=== PATIENT | female | born 1995 | race Two or more races ===

== ENCOUNTER 2023-04-02 15:04 | Emergency (ER) | payer OTHER ==
[~2023-04-02] VITALS: Ht 165.1 cm; Wt 60.3 kg
[2023-04-02 17:20] LABS: HEMATOCRIT 32.8 % (36.0-45.00); HEMOGLOBIN 11.3 g/dL (12.0-15.00); MEAN CELL VOLUME 88.3 fL (80.00-100.00); MEAN CORPUSCULAR HEMOGLOBIN 30.4 pg (27.00-32.0); MEAN CORPUSCULAR HGB CONC 34.5 g/dl (32.0-36.0); PLATELET COUNT 370 K/uL (150-450); RED BLOOD COUNT 3.71 M/uL (4.00-6.00); RED CELL DISTRIBUTION WIDTH 13.4 % (11.5-14.5)
== END 2023-04-02 18:18 | disposition home or self-care (01) ==
LOC: ER 15:05
PROVIDERS: General Practice
DX: R51.9 Headache, unspecified (principal); R53.81 Other malaise; Z20.822 Contact with and (suspected) exposure to COVID-19

== ENCOUNTER 2024-03-11 10:54 | Outpatient (CLI) | payer OTHER | END 2024-03-11 10:55 | disposition home or self-care (01) | LOC: PRENATAL 10:54 | PROVIDERS: ATTEND Obstetrics & Gynecology Maternal & Fetal Medicine | DX: O36.80X0 Pregnancy with inconclusive fetal viability, not applicable or unspecified (principal); Z36.82 Encounter for antenatal screening for nuchal translucency; Z14.8 Genetic carrier of other disease; Z3A.12 12 weeks gestation of pregnancy ==

== ENCOUNTER 2024-05-02 11:03 | Outpatient (CLI) | payer OTHER | END 2024-05-02 11:05 | disposition home or self-care (01) | LOC: PRENATAL 11:03 | PROVIDERS: ATTEND Obstetrics & Gynecology Maternal & Fetal Medicine | DX: O35.3XX0 Maternal care for (suspected) damage to fetus from viral disease in mother, not applicable or unspecified (principal); O44.00 Complete placenta previa NOS or without hemorrhage, unspecified trimester; Z3A.20 20 weeks gestation of pregnancy ==

== ENCOUNTER 2024-05-10 09:17 | Emergency (ER) | payer OTHER ==
[~2024-05-10] VITALS: Ht 165.1 cm; Wt 73.9 kg
[2024-05-10] MEDS ORDERED: PRENATAL + DHA1 EAC1 (09:52)
[2024-05-10] MEDS ORDERED: HYOSCYAMINE SULFATE 0.125 MG TAB.SUBL SL ONE (10:45)
[2024-05-10] MEDS ORDERED: FAMOTIDINE/PF 20 MG/2 ML VIAL IV PUSH ONE (10:45)
[2024-05-10] MEDS ORDERED: ONDANSETRON HCL 2 MG/ML VIAL IV ONE (10:45)
[2024-05-10] MEDS ORDERED: ONDANSETRON HCL 2 MG/ML VIAL ONE (10:49)
[2024-05-10] MEDS ORDERED: FAMOTIDINE/PF 20 MG/2 ML VIAL ONE (10:50)
[2024-05-10] MEDS ORDERED: HYOSCYAMINE SULFATE 0.125 MG TAB.SUBL ONE (10:50)
[2024-05-10 11:24] LABS: HEMATOCRIT 37.6 % (36.0-45.00); HEMOGLOBIN 13.1 g/dL (12.0-15.00); MEAN CORPUSCULAR HEMOGLOBIN 31.5 pg (27.00-32.0); PLATELET COUNT 337 K/uL (150-450); RED BLOOD COUNT 4.18 M/uL (4.00-6.00); RED CELL DISTRIBUTION WIDTH 13.3 % (11.5-14.5)
[2024-05-10 11:55] LABS: PH,URINE 5.5 (5.0-8.0); URINE APPEARANCE Turbid; URINE BILIRRUBIN Negative (NEGATIVE); URINE BLOOD Negative; URINE COLOR Dark Yellow; URINE GLUCOSE Negative (NEGATIVE); URINE KETONE 15 (NEGATIVE); URINE LEUKOCYTE Trace; URINE NITRATE Negative; URINE PROTEIN 30 (NEGATIVE)
[2024-05-10 11:59] LABS: URINE BACTERIA 7831.1 uL (0.0-1933); URINE CAST 4.41 uL (0.0-1.40); URINE RBC 23.7 uL (0.0-20.8); URINE WBC 160.6 uL (0.0-23.2)
[2024-05-10 12:05] LABS: URINE EPITHELIAL CELLS > 201.7 uL (0.0-38.8)
[2024-05-10 12:12] LABS: URINE CRYSTALS FEW /HPF; URINE MUCUS HEAVY
[2024-05-10 12:24] LABS: ALBUMIN 3.1 gm/dL (3.4-5.0); BILIRUBIN TOTAL 0.56 mg/dL (0.3-1.2); CALCIUM 9.7 mg/dL (8.5-10.1); CREATININE SERUM 0.58 mg/dL (0.55-1.02); GFR 122.91; GLOBULINA 3.9 G/DL (2.4-3.5); POTASSIUM 3.94 mEq/L (3.5-5.1)
== END 2024-05-10 15:40 | disposition home or self-care (01) ==
LOC: ER 09:19
PROVIDERS: Emergency Medicine
DX: O99.612 Diseases of the digestive system complicating pregnancy, second trimester (principal); K92.89 Other specified diseases of the digestive system; Z3A.21 21 weeks gestation of pregnancy; R19.7 Diarrhea, unspecified; Z20.822 Contact with and (suspected) exposure to COVID-19

== ENCOUNTER 2024-07-25 10:18 | Outpatient (CLI) | payer OTHER ==
[~2024-07-25 10:18] MED LIST: PRENATAL + DHA1 EAC1
== END 2024-07-25 10:19 | disposition home or self-care (01) ==
LOC: PRENATAL 10:18
PROVIDERS: ATTEND Obstetrics & Gynecology Maternal & Fetal Medicine
DX: O26.849 Uterine size-date discrepancy, unspecified trimester (principal); O36.8199 Decreased fetal movements, unspecified trimester, other fetus; Z3A.33 33 weeks gestation of pregnancy

== ENCOUNTER 2024-09-13 05:30 | Inpatient (IN) | payer OTHER ==
[2024-09-13] VITALS (11 sets, daily range): BP systolic 104–132; BP diastolic 57–79
[~2024-09-13] VITALS: Ht 167.6 cm; Wt 85.7 kg
[2024-09-13] MEDS ORDERED: VALTREX1000 MG PO (05:51)
[2024-09-13] MEDS ORDERED: RINGERS SOLUTION,LACTATED 1,000 ML IV SCH (06:00)
[2024-09-13 06:52] LABS: BASO % 0.4 % (0.1-1.2); EOS # 0.12 (0.04-0.54); EOS % 0.8 % (0.7-7.0); HEMATOCRIT 32.7 % (34.1-44.9); LYMPH # 2.24 (1.18-3.74); LYMPH % 14.4 % (19.3-53.1); MEAN CORPUSCULAR HEMOGLOBIN 28.7 pg (25.6-32.2); MONO # 0.91 (0.24-0.82); MONO % 5.8 % (4.7-12.5); NEUT % 77.5 % (34.0-71.1); PLATELET COUNT 342 K/uL (163-369); RED BLOOD COUNT 3.83 M/uL (3.93-5.22); RED CELL DISTRIBUTION WIDTH 13.7 % (11.6-14.4)
[2024-09-13 07:08] LABS: INR 0.94; PROTHROMBIN TIME 10.3 SECONDS (9.0-11.5)
[2024-09-13 07:39] LABS: ALBUMIN 2.7 gm/dL (3.4-5.0); BILIRUBIN TOTAL 0.3 mg/dL (0.3-1.2); CALCIUM 8.9 mg/dL (8.5-10.1); CREATININE SERUM 0.49 mg/dL (0.55-1.02); GFR 149.31; GLOBULINA 3.8 G/DL (2.4-3.5); POTASSIUM 3.98 mEq/L (3.5-5.1); TOTAL PROTEIN 6.5 gm/dL (6.4-8.2)
[2024-09-13 08:34] LABS: PH,URINE 6.5 (5.0-8.0); URINE APPEARANCE Clear; URINE BILIRRUBIN Negative (NEGATIVE); URINE BLOOD Negative; URINE COLOR Yellow; URINE GLUCOSE Negative (NEGATIVE); URINE KETONE Negative (NEGATIVE); URINE LEUKOCYTE Negative; URINE NITRATE Negative; URINE PROTEIN Negative (NEGATIVE); URINE UROBILINOGEN 0.2 E.U./dl
[2024-09-13 08:40] LABS: URINE BACTERIA 119.9 uL (0.0-1933); URINE EPITHELIAL CELLS 15.3 uL (0.0-38.8); URINE RBC 4.7 uL (0.0-20.8); URINE WBC 4.4 uL (0.0-23.2)
[2024-09-13 08:45] LABS: URINE CAST 0.44 uL (0.0-1.40)
[2024-09-13] MEDS ORDERED: OXYTOCIN 500 ML IV SCH (11:45)
[2024-09-13] MEDS ORDERED: MORPHINE SULFATE 4 MG/ML CARTRIDGE IV ONE (16:30)
[2024-09-13] MEDS ORDERED: CHLORHEXIDINE GLUCONATE 120 ML BOTTLE TOP ONE (18:10)
[2024-09-13] MEDS ORDERED: ERYTHROMYCIN BASE OPHT 1GM EACH TUBE OP ONE ×2 (18:10→21:30)
[2024-09-13] MEDS ORDERED: LIDOCAINE HCL 1% 10ML VIAL ONE (18:10)
[2024-09-13] MEDS ORDERED: OXYTOCIN 20 UNITS/1000ML RL PIGGYBAG IV ONE (18:10)
[2024-09-13] MEDS ORDERED: ACETAMINOPHEN 500 MG GEL..CAP PO PRN (21:15)
[2024-09-13] MEDS ORDERED: OXYTOCIN 1,000 ML IV SCH (21:30)
[2024-09-13] MEDS ORDERED: CHLORHEXIDINE GLUCONATE 120 ML BOTTLE TOP SCH (21:30)
[2024-09-14 00:53] VITALS: BP 103/65
[2024-09-14 08:00] VITALS: BP 114/79
[2024-09-14] MEDS ORDERED: PNV,CALCIUM 72/IRON/FOLIC ACID 1 TAB TABLET PO SCH (09:00)
[2024-09-14 09:06] LABS: BASO % 0.2 % (0.1-1.2); EOS # 0.04 (0.04-0.54); EOS % 0.2 % (0.7-7.0); HEMATOCRIT 31.2 % (34.1-44.9); HEMOGLOBIN 10.3 g/dL (11.2-15.7); LYMPH # 2.14 (1.18-3.74); LYMPH % 11.3 % (19.3-53.1); MEAN CORPUSCULAR HEMOGLOBIN 27.9 pg (25.6-32.2); MONO # 1.61 (0.24-0.82); MONO % 8.5 % (4.7-12.5); NEUT % 79.1 % (34.0-71.1); PLATELET COUNT 367 K/uL (163-369); RED BLOOD COUNT 3.69 M/uL (3.93-5.22); RED CELL DISTRIBUTION WIDTH 13.9 % (11.6-14.4)
[2024-09-14 16:10] VITALS: BP 100/62
[2024-09-15 02:24] VITALS: BP 111/73
[2024-09-15 08:00] VITALS: BP 108/70
[2024-09-15 16:12] VITALS: BP 115/76
[2024-09-15] MEDS ORDERED: IBUprofen 600 MG TABLET PO SCH (18:15)
[2024-09-15 20:04] LABS: BASO % 0.3 % (0.1-1.2); EOS # 0.28 (0.04-0.54); EOS % 2.1 % (0.7-7.0); HEMATOCRIT 31.1 % (34.1-44.9); HEMOGLOBIN 10.3 g/dL (11.2-15.7); LYMPH # 2.58 (1.18-3.74); LYMPH % 19.4 % (19.3-53.1); MEAN CORPUSCULAR HEMOGLOBIN 28.9 pg (25.6-32.2); MONO # 0.98 (0.24-0.82); MONO % 7.4 % (4.7-12.5); NEUT # 9.31 (1.56-6.13); PLATELET COUNT 348 K/uL (163-369); RED BLOOD COUNT 3.56 M/uL (3.93-5.22); RED CELL DISTRIBUTION WIDTH 13.9 % (11.6-14.4)
[2024-09-16 02:35] VITALS: BP 113/81
[2024-09-16 08:00] VITALS: BP 116/66
[2024-09-16 16:00] VITALS: BP 103/71
== END 2024-09-16 18:43 | disposition home or self-care (01) | DRG 807 ==
LOC: LDR 05:30 → OB/GYN 05:30
PROVIDERS: ADMIT Obstetrics & Gynecology; ATTEND Obstetrics & Gynecology
PROC: 10E0XZZ Delivery of Products of Conception, External Approach (ICD-10-PCS; principal; 2024-09-13)
PROC: 4A1HXCZ Monitoring of Products of Conception, Cardiac Rate, External Approach (ICD-10-PCS; 2024-09-13)
DX: O69.81X0 Labor and delivery complicated by cord around neck, without compression, not applicable or unspecified (principal); Z37.0 Single live birth; Z3A.39 39 weeks gestation of pregnancy